=== PATIENT | female | born 1995 | race Caucasian/White ===

== ENCOUNTER 2020-08-18 17:11 | Emergency (ER) | payer BC, OTHER ==
[~2020-08-18 17:11] MED LIST: BENTYL 20MG TAB20 MG PO; FLOMAX0.4 MG PO; NORCO 7.5-3251 EACH PO; ONDANSETRON ODT4 MG PO; REGLAN10 MG PO
[2020-08-18 18:51] LABS: HEMOGLOBIN 13.2 gm/dl (12.3-15.3); RED BLOOD COUNT 4.51 M/UL (4.00-5.10); WHITE BLOOD COUNT 15.9 K/UL (4.5-11.0)
[2020-08-18 19:08] LABS: BUN/CREATININE RATIO 19 (0-10)
== END 2020-08-18 21:55 | disposition home or self-care (01) ==
LOC: ER1 17:11
PROVIDERS: Family Medicine
DX: O34.81 Maternal care for other abnormalities of pelvic organs, first trimester (principal); N83.202 Unspecified ovarian cyst, left side; N83.201 Unspecified ovarian cyst, right side; O99.891 Other specified diseases and conditions complicating pregnancy; R03.0 Elevated blood-pressure reading, without diagnosis of hypertension; Z79.84 Long term (current) use of oral hypoglycemic drugs; Z3A.01 Less than 8 weeks gestation of pregnancy
CPT/HCPCS: 36415; 76830; 80053; 81001; 84702; 85025; 96374; 96375; 99284; J1885; J2270; J2405

== ENCOUNTER 2021-09-23 02:24 | Emergency (ER) | payer BC ==
[2021-09-23 02:53] LABS: RED BLOOD COUNT 4.81 M/UL (4.00-5.10); WHITE BLOOD COUNT 14.6 K/UL (4.5-11.0)
[2021-09-23 03:14] LABS: BUN/CREATININE RATIO 18 (0-10)
== END 2021-09-23 06:08 | disposition home or self-care (01) ==
LOC: ER1 02:24
PROVIDERS: Family Medicine
DX: R07.9 Chest pain, unspecified (principal); I10 Essential (primary) hypertension; F41.9 Anxiety disorder, unspecified
CPT/HCPCS: 71045; 80053; 82550; 82553; 84484; 84703; 85025; 85379; 93005; 99285

== ENCOUNTER 2021-10-24 00:08 | Emergency (ER) | payer BC ==
[2021-10-24 01:05] LABS: HEMOGLOBIN 12.9 gm/dl (12.3-15.3); RED BLOOD COUNT 4.4 M/UL (4.00-5.10); WHITE BLOOD COUNT 10.1 K/UL (4.5-11.0)
[2021-10-24 01:20] LABS: BUN/CREATININE RATIO 20 (0-10)
== END 2021-10-24 03:29 | disposition home or self-care (01) ==
LOC: ER1 00:08
PROVIDERS: Family Medicine
DX: R20.2 Paresthesia of skin (principal)
CPT/HCPCS: 72125; 80053; 82550; 82553; 84484; 85025; 93005; 99284

== ENCOUNTER 2021-11-30 22:44 | Emergency (ER) | payer BC ==
[2021-11-30 23:24] LABS: HEMOGLOBIN 14.3 gm/dl (12.3-15.3); RED BLOOD COUNT 4.89 M/UL (4.00-5.10); WHITE BLOOD COUNT 13.2 K/UL (4.5-11.0)
[2021-11-30 23:43] LABS: BUN/CREATININE RATIO 13 (0-10)
== END 2021-12-01 02:17 | disposition home or self-care (01) ==
LOC: ER1 22:44
PROVIDERS: Family Medicine
DX: J06.9 Acute upper respiratory infection, unspecified (principal); I10 Essential (primary) hypertension; Z20.822 Contact with and (suspected) exposure to COVID-19; Z79.899 Other long term (current) drug therapy
CPT/HCPCS: 0240U; 71045; 80053; 81001; 85025; 93005; 99285

== ENCOUNTER → 2022-01-08 | Outpatient (CLI) | payer BC | LOC: HEART 5 01-01 14:30 | DX: R00.2 Palpitations (principal) ==

== ENCOUNTER 2022-02-23 15:26 | Emergency (ER) | payer BC ==
[2022-02-23 16:15] LABS: HEMOGLOBIN 14.7 gm/dl (12.3-15.3); RED BLOOD COUNT 4.88 M/UL (4.00-5.10); WHITE BLOOD COUNT 12.8 K/UL (4.5-11.0)
[2022-02-23 17:18] LABS: BUN/CREATININE RATIO 19 (0-10)
[2022-02-23] MEDS ORDERED: TENORMIN 25 MG25 MG PO (17:46)
== END 2022-02-23 18:11 | disposition home or self-care (01) ==
LOC: ER1 15:26
PROVIDERS: Physician Assistant
DX: R00.2 Palpitations (principal); E11.9 Type 2 diabetes mellitus without complications; Z79.84 Long term (current) use of oral hypoglycemic drugs
CPT/HCPCS: 71045; 80053; 81001; 82550; 82553; 84439; 84443; 84484; 84703; 85025; 93005; 99285

== ENCOUNTER → 2022-02-24 | Outpatient (CLI) | payer BC ==
[~2022-02-24] MED LIST changes: +TENORMIN 25 MG25 MG PO
== END ==
LOC: HEART 5 08:36
DX: R00.2 Palpitations (principal)